=== PATIENT | female | born 1945 | race Caucasian/White ===

== ENCOUNTER 2017-12-24 20:48 | Emergency (ER) | payer SELFPAY ==
[~2017-12-24] VITALS: Ht 152.4 cm; Wt 45.4 kg
[2017-12-24 21:23] VITALS: Ht 152.4 cm; Wt 45.4 kg
[2017-12-25 02:15] VITALS: BP 125/70
== END 2017-12-25 02:20 | disposition home or self-care (01) ==
LOC: ED 20:48
DX: R10.9 Unspecified abdominal pain (principal); K59.00 Constipation, unspecified
CPT/HCPCS: J0500